=== PATIENT | female | born 1980 | race Caucasian/White ===

== ENCOUNTER 2020-09-06 01:10 | Emergency (ER) | payer OTHER ==
[2020-09-06 01:37] VITALS: BP 125/98; PULSE 122; TEMP 98.3
[2020-09-06] MEDS ORDERED: BACITRACIN 0.9 GM PACKET ONE (04:20)
[2020-09-06] MEDS ORDERED: DIPHTH,PERTUSS(ACELL),TET 0.5 ML DISP.SYRIN IM ONE ×2 (04:45)
== END 2020-09-06 05:15 | disposition home or self-care (01) ==
LOC: JER 01:10
PROC: 3E0234Z Introduction of Serum, Toxoid and Vaccine into Muscle, Percutaneous Approach (ICD-10-PCS; principal; 2020-09-06)
PROC: 0HQ1XZZ Repair Face Skin, External Approach (ICD-10-PCS; 2020-09-06)
DX: S00.83XA Contusion of other part of head, initial encounter (principal); S01.01XA Laceration without foreign body of scalp, initial encounter
CPT/HCPCS: 12011-25; 70450-TC; 90471; 90715; 99284-25